=== PATIENT | male | born 1950 | race Caucasian/White ===

== ENCOUNTER 2017-03-26 14:31 | Observation (INO) | payer MEDICARE, BC ==
[~2017-03-26] VITALS: Ht 182.9 cm; Wt 103.2 kg
[2017-03-26] VITALS (8 sets, daily range): BP systolic 122–164; BP diastolic 72–104; PULSE 82–96; RESP 16–18; TEMP 96.9–98.1; O2SAT 95–97
--- NOTE | 2017-03-26 14:46 | PD ---
HPI Chief Complaint: Chest Pain Time Seen by Provider: 14:41 Travel History International Travel<30 days: No Contact w/Intl Traveler<30days: No Traveled to known affect area: No History of Present Illness HPI This 66-year-old male is complaining of episodes of tightness in his chest. He' s been having these for several months. He says he gets anywhere between 2 and 6 of them daily. He has not been able to determine what triggers it. It does not appear related to eating or to exertion. It is characterized by pressure in the substernal area that lasts 5-10 minutes. There is no radiation. He is no associated shortness of breath. Occasionally gets a lump in his throat. He gets palpitations at night does not usually get the pain at night. He saw a microwave remote sensing scientist 2 or 3 years ago because he was having palpitations. At that time he was found to have atrial fibrillation. He is on aspirin daily. He is not on any medication for rate control. He does not smoke. There is no family history of heart disease. He has no history of hypertension or diabetes PFSH Past Medical History Hx Anticoagulant Therapy: Yes (ASA) Cardiovascular Problems: Yes Social History Tobacco Use: No Allergies-Medications (Allergen,Severity, Reaction): Coded Allergies: No Known Allergies (Unverified , 03/26/17) Reported Meds & Prescriptions Reported Meds & Active Scripts Active Reported Aspirin 325 Mg Tab 325 Mg PO DAILY Review of Systems General / Constitutional: No: Fever, Chills Eyes: No: Diploplia, Blurred Vision HENT: No: Headaches, Vertigo Cardiovascular: Positive: Chest Pain or Discomfort, Palpitations Respiratory: No: Cough, Shortness of Breath Gastrointestinal: No: Nausea, Vomiting Genitourinary: No: Urgency, Frequency Musculoskeletal: No: Myalgias Skin: No Rash Neurologic: No: Weakness, Dizziness Hematologic/Lymphatic: No: Easy Bruising Physical Exam Narrative GENERAL: Well-developed male SKIN: Focused skin assessment warm/dry. HEAD: Atraumatic. Normocephalic. EYES: Pupils equal and round. No scleral icterus. No injection or drainage. ENT: No nasal bleeding or discharge. Mucous membranes pink and moist. NECK: Trachea midline. No JVD. CARDIOVASCULAR: irregular rate and rhythm. No murmur appreciated. RESPIRATORY: No accessory muscle use. Clear to auscultation. Breath sounds equal bilaterally. GASTROINTESTINAL: Abdomen soft, non-tender, nondistended. Hepatic and splenic margins not palpable. MUSCULOSKELETAL: No obvious deformities. No clubbing. No cyanosis. No edema. NEUROLOGICAL: Awake and alert. No obvious cranial nerve deficits. Motor grossly within normal limits. Normal speech. PSYCHIATRIC: Appropriate mood and affect; insight and judgment normal. Data Data Last Documented VS Vital Signs Date Time Temp Pulse Resp B/P (MAP) Pulse Ox O2 Delivery O2 Flow Rate FiO2 03/26/17 15:10 83 16 138/83 (101) 97 Room Air 03/26/17 14:35 98.1 Orders Orders Complete Blood Count With Diff (03/26/17 14:41) Basic Metabolic Panel (Bmp) (03/26/17 14:41) Troponin I (03/26/17 14:41) Urinalysis - C+S If Indicated (03/26/17 14:41) Chest, Single Ap (03/26/17 14:41) Electrocardiogram (03/26/17 14:36) Labs Laboratory Tests Test 03/26/17 14:56 03/26/17 15:28 White Blood Count 8.6 TH/MM3 Red Blood Count 4.85 MIL/MM3 Hemoglobin 15.0 GM/DL Hematocrit 45.2 % Mean Corpuscular Volume 93.0 FL Mean Corpuscular Hemoglobin 30.9 PG Mean Corpuscular Hemoglobin Concent 33.2 % Red Cell Distribution Width 12.7 % Platelet Count 281 TH/MM3 Mean Platelet Volume 7.2 FL Neutrophils (%) (Auto) 57.9 % Lymphocytes (%) (Auto) 33.3 % Monocytes (%) (Auto) 6.6 % Eosinophils (%) (Auto) 1.7 % Basophils (%) (Auto) 0.5 % Neutrophils # (Auto) 5.0 TH/MM3 Lymphocytes # (Auto) 2.9 TH/MM3 Monocytes # (Auto) 0.6 TH/MM3 Eosinophils # (Auto) 0.1 TH/MM3 Basophils # (Auto) 0.0 TH/MM3 CBC Comment DIFF FINAL Differential Comment Blood Urea Nitrogen 16 MG/DL Creatinine 1.50 MG/DL Random Glucose 102 MG/DL Calcium Level 8.7 MG/DL Sodium Level 139 MEQ/L Potassium Level 4.4 MEQ/L Chloride Level 103 MEQ/L Carbon Dioxide Level 28.5 MEQ/L Anion Gap 8 MEQ/L Estimat Glomerular Filtration Rate 47 ML/MIN Troponin I LESS THAN 0.02 NG/ML MDM Medical Decision Making Medical Screen Exam Complete: Yes Emergency Medical Condition: Yes Medical Record Reviewed: Yes Differential Diagnosis Differential includes angina, coronary artery disease, GERD, atypical chest pain Narrative Course EKG shows atrial fibrillation with a controlled rate. There are no acute ST-T wave changes. Chest x-ray is negative. Troponin is less than 0.2. Patient will be admitted to the chest pain center Diagnosis Primary Impression: Chest pain Qualified Codes: R07.9 - Chest pain, unspecified Admitting Information Admitting Physician Requests: Observation Duke Yung MD Mar 26, 2017 14:46
[2017-03-26] MEDS ORDERED: ASPI325T PO (15:07)
--- NOTE | 2017-03-26 15:12 | RADRPT ---
EXAM DATE/TIME: 03/26/2017 14:53 [facility] COMPARISON: No previous studies available for comparison. INDICATIONS : Chest pain today MEDICAL HISTORY : None. SURGICAL HISTORY : spinal neck surgery ENCOUNTER: Initial ACUITY: 1 day PAIN SCORE: 2/10 LOCATION: Bilateral chest FINDINGS: A single view of the chest demonstrates the lungs to be symmetrically aerated without evidence of mas s, infiltrate or effusion. The cardiomediastinal contours are unremarkable. Osseous structures are intact. CONCLUSION: No acute disease. Fly Ball MD on March 26, 2017 at 15:10 Board Certified Radiologist. This report was verified electronically.
[2017-03-26 15:14] LABS: BASOPHIL % 0.5 % (0.0-2.0); EOSINOPHIL # 0.1 TH/MM3 (0-0.4); EOSINOPHIL % 1.7 % (0.0-4.0); HEMATOCRIT 45.2 % (39.0-51.0); LYMPH % 33.3 % (9.0-44.0); LYMPHOCYTE # 2.9 TH/MM3 (1.0-4.8); MEAN CORPUSCULAR HEMOGLOBIN 30.9 PG (27.0-34.0); MEAN CORPUSCULAR HGB CONC 33.2 % (32.0-36.0); MEAN PLATELET VOLUME 7.2 FL (7.0-11.0); MONO % 6.6 % (0.0-8.0); MONOCYTE # 0.6 TH/MM3 (0-0.9); NEUT % 57.9 % (16.0-70.0); PLATELET COUNT 281 TH/MM3 (150-450); RED BLOOD COUNT 4.85 MIL/MM3 (4.50-5.90); RED CELL DISTRIBUTION WIDTH 12.7 % (11.6-17.2); WHITE BLOOD COUNT 8.6 TH/MM3 (4.0-11.0)
[2017-03-26 15:18] LABS: CHLORIDE 103 MEQ/L (98-107); SODIUM (NA) 139 MEQ/L (136-145)
[2017-03-26 15:20] LABS: CALCIUM 8.7 MG/DL (8.5-10.1)
[2017-03-26 15:21] LABS: BICARBONATE 28.5 MEQ/L (21.0-32.0); BLOOD UREA NITROGEN 16 MG/DL (7-18); GLUCOSE,RANDOM 102 MG/DL (74-106)
[2017-03-26 15:24] LABS: GLOMERULAR FILTRATION RATE 47 ML/MIN (>89)
[2017-03-26 15:29] LABS: TROPONIN I LESS THAN 0.02 NG/ML (0.02-0.05)
[2017-03-26 15:36] LABS: BILIRUBIN, URINE NEG (NEG); BLOOD, URINE NEG (NEG); GLUCOSE,URINE NEG (NEG); KETONE, URINE NEG (NEG); NITRITE,URINE NEG (NEG); URINE LEUKOCYTE ESTERASE NEG (NEG)
[2017-03-26 15:52] LABS: SQUAMOUS EPITHELIAL CELL URINE 0-5 /hpf (0-5); URINE COLOR YELLOW (YELLW/STRAW); WBC, URINE 0-2 /hpf (0-5)
[2017-03-26] MEDS ORDERED: TEMAZEPAM 15 MG CAP PO PRN (17:00)
[2017-03-26] MEDS ORDERED: ACETAMINOPHEN/HYDROcodone 325 MG/7.5 MG TAB PO PRN (17:00)
[2017-03-26] MEDS ORDERED: ONDANSETRON HCL 4 MG/2 ML VIAL IV PUSH PRN (17:00)
[2017-03-26] MEDS ORDERED: SODIUM CHLORIDE 0.9% FLUSH 10 ML FLUSH IV FLUSH PRN (17:00)
[2017-03-26] MEDS ORDERED: ACETAMINOPHEN 500 MG CPLT PO PRN (17:00)
[2017-03-26] MEDS ORDERED: MORPHINE SULFATE 4 MG/ML INJ IV PUSH PRN (17:00)
[2017-03-26] MEDS ORDERED: NITROGLYCERIN 0.4 MG SL 25 TABS/BTL SL PRN (17:00)
--- NOTE | 2017-03-26 17:53 | HHI.HP ---
[facility] No Primary Care Physician Admission Diagnosis CHEST PAIN Diagnoses: Chief Complaint: chest pain Travel History International Travel<30 Days: No Contact w/Intl Traveler <30 Da: No Traveled to Known Affected Are: No History of Present Illness 66-year-old white male being admitted for chest pain. States that he's had faint intermittent chest pains for a year but that over the last 4 weeks the pain has become more frequent and particularly today the became became more intense to a level of a "2." Pain will occasionally radiate from the midsternum to the suprasternal area. Says he was either sitting or standing when the pain occurred today. Has been intermittently coming and going since onset today. Has been unable to identify any exacerbating or alleviating factors .Denies any shortness of breath, nausea vomiting or lightheadedness or any palpitations. Says he had a stress treadmill test about a year ago and that was negative. Says he takes aspirin 325 mg only about twice a week. Review of Systems Except as stated in HPI: all other systems reviewed are Neg Past Family Social History Past Medical History afib Past Surgical History c4-c5 disc repair Allergies: Coded Allergies: No Known Allergies (Unverified , 03/26/17) Family History no premature CVA or CAD in family Social History no cig, illicit drug use, reports light occasional ETOH use Physical Exam Vital Signs Vital Signs Date Time Temp Pulse Resp B/P (MAP) Pulse Ox O2 Delivery O2 Flow Rate FiO2 03/26/17 17:03 97 21 03/26/17 16:57 89 16 152/90 (110) 97 03/26/17 15:10 83 16 138/83 (101) 97 Room Air 03/26/17 14:35 98.1 96 18 164/104 (124) 97 Physical Exam VS: Reviewed, afebrile GENERAL: Middle age white male, well-nourished, no acute distress SKIN: Warm and dry. EYES: No scleral icterus. No injection or drainage. Extraocular motions intact ENT: No nasal bleeding or discharge. Mucous membranes pink and moist. CARDIOVASCULAR: Regular rate and rhythm. no murmurs RESPIRATORY: No accessory muscle use. Clear to auscultation. Breath sounds equal bilaterally. GASTROINTESTINAL: Abdomen soft, non-tender, nondistended. Hepatic and splenic margins not palpable. Extremities: No clubbing, cyanosis, or edema. No obvious deformities. MUSCULOSKELETAL: Extremities without clubbing, cyanosis, or edema. No obvious deformities. grossly intact ROM with 5/5 strength in upper and lower extremities proximally. No chest wall TTP NEUROLOGICAL: Awake and alert. No obvious cranial nerve deficits. No facial droop nor slurred speech noted. PSYCHIATRIC: Appropriate mood and affect; insight and judgment normal. Laboratory Laboratory Tests Test 03/26/17 14:56 03/26/17 15:28 White Blood Count 8.6 Red Blood Count 4.85 Hemoglobin 15.0 Hematocrit 45.2 Mean Corpuscular Volume 93.0 Mean Corpuscular Hemoglobin 30.9 Mean Corpuscular Hemoglobin Concent 33.2 Red Cell Distribution Width 12.7 Platelet Count 281 Mean Platelet Volume 7.2 Neutrophils (%) (Auto) 57.9 Lymphocytes (%) (Auto) 33.3 Monocytes (%) (Auto) 6.6 Eosinophils (%) (Auto) 1.7 Basophils (%) (Auto) 0.5 Neutrophils # (Auto) 5.0 Lymphocytes # (Auto) 2.9 Monocytes # (Auto) 0.6 Eosinophils # (Auto) 0.1 Basophils # (Auto) 0.0 CBC Comment DIFF FINAL Differential Comment Blood Urea Nitrogen 16 Creatinine 1.50 Random Glucose 102 Calcium Level 8.7 Sodium Level 139 Potassium Level 4.4 Chloride Level 103 Carbon Dioxide Level 28.5 Anion Gap 8 Estimat Glomerular Filtration Rate 47 Troponin I LESS THAN 0.02 Urine Collection Type CLEAN CATCH Urine Color YELLOW Urine Turbidity CLEAR Urine pH 6.0 Urine Specific [place] 1.024 Urine Protein NEG Urine Glucose (UA) NEG Urine Ketones NEG Urine Occult Blood NEG Urine Nitrite NEG Urine Bilirubin NEG Urine Leukocyte Esterase NEG Urine WBC 0-2 Urine Squamous Epithelial Cells 0-5 Microscopic Urinalysis Comment CULT NOT INDICATED Result Diagram: 03/26/17 1456 03/26/17 1456 Imaging Last Impressions Chest X-Ray 03/26/17 1441 Signed Impressions: Service Date/Time: Sunday, March 26, 2017 14:53 - CONCLUSION: No acute disease. MD Lani Zabala VTE Risk Assessment Caprini VTE Risk Assessment: Mod/High Risk (score >= 2) Caprini Risk Assessment Model Point Value = 1 Point Value = 2 Point Value = 3 Point Value = 5 Age 41-60 Minor surgery BMI > 25 kg/m2 Swollen legs Varicose veins or History of unexplained or recurrent spontaneous Oral contraceptives or hormone replacement Sepsis (< 1 month) Serious lung disease, including pneumonia (< 1 month) Abnormal pulmonary function Acute myocardial infarction Congestive heart failure (< 1 month) History of inflammatory bowel disease Medical patient at bed rest Age 61-74 Arthroscopic surgery Major open surgery (> 45 min) Laparoscopic surgery (> 45 min) Malignancy Confined to bed (> 72 hours) Immobilizing plaster cast Central venous access Age >= 75 History of VTE Family history of VTE Factor V Leiden Prothrombin [id number] Lupus anticoagulant Anticardiolipin antibodies Elevated serum homocysteine Heparin-induced thrombocytopenia Other congenital or acquired thrombophilia Stroke (< 1 month) Elective arthroplasty Hip, pelvis, or leg fracture Acute spinal cord injury (< 1 month) Prophylaxis Regimen Total Risk Factor Score Risk Level Prophylaxis Regimen 0-1 Low Early ambulation 2 Moderate Order ONE of the following: *Sequential Compression Device (SCD) *Heparin 5000 units SQ BID 3-4 Higher Order ONE of the following medications: *Heparin 5000 units SQ TID *Enoxaparin/Lovenox 40 mg SQ daily (WT < 150 kg, CrCl > 30 mL/min) *Enoxaparin/Lovenox 30 mg SQ daily (WT < 150 kg, CrCl > 10-29 mL/min) *Enoxaparin/Lovenox 30 mg SQ BID (WT < 150 kg, CrCl > 30 mL/min) AND/OR *Sequential Compression Device (SCD) 5 or more Highest Order ONE of the following medications: *Heparin 5000 units SQ TID (Preferred with Epidurals) *Enoxaparin/Lovenox 40 mg SQ daily (WT < 150 kg, CrCl > 30 mL/min) *Enoxaparin/Lovenox 30 mg SQ daily (WT < 150 kg, CrCl > 10-29 mL/min) *Enoxaparin/Lovenox 30 mg SQ BID (WT < 150 kg, CrCl > 30 mL/min) AND *Sequential Compression Device (SCD) Assessment and Plan Assessment and Plan Chest pain - Trending troponins, EKG which I independently reviewed shows atrial flutter 2: 1 - Chest x-ray which I independently reviewed shows no acute infiltrates - plan to perform stress test tomorrow - We'll check LDL, continue with high-dose aspirin and Lipitor daily starting today - Nitro paste as needed Aflutter/Afib - continue aspirin w/ chadsvasc2 score of 1 DVT - SCDs All orders entered by Dimitri York were at my discretion. Spenser Schneider MD Mar 26, 2017 17:53
[2017-03-26 18:49] LABS: TROPONIN I LESS THAN 0.02 NG/ML (0.02-0.05)
[2017-03-26] MEDS: SODIUM CHLORIDE 0.9% FLUSH 10 ML FLUSH IV FLUSH SCH (20:38)
[2017-03-26 21:50] LABS: TROPONIN I LESS THAN 0.02 NG/ML (0.02-0.05)
[2017-03-27] VITALS: BP 131/78; PULSE 83; RESP 18; TEMP 97; O2SAT 98
[2017-03-27 04:00] VITALS: BP 135/86; PULSE 75; RESP 20; TEMP 96.8; O2SAT 98
[2017-03-27 07:01] VITALS: PULSE 76
[2017-03-27 08:00] VITALS: BP 123/78; PULSE 79; RESP 18; TEMP 97.2; O2SAT 98
[2017-03-27] MEDS: SODIUM CHLORIDE 0.9% FLUSH 10 ML FLUSH IV FLUSH SCH (08:35)
[2017-03-27] MEDS ORDERED: ASPIRIN 325 MG TAB PO SCH (09:00)
[2017-03-27 09:36] LABS: CHOLESTEROL/ HDL RATIO 3.99 RATIO; HDL CHOLESTEROL 38.8 MG/DL (40.0-60.0)
[2017-03-27] MEDS ORDERED: REGADENOSON INJ 0.4 MG/5 ML SYR IV ONE (10:07)
--- NOTE | 2017-03-27 11:48 | RADRPT ---
EXAM DATE/TIME: 03/27/2017 10:05 [facility] COMPARISON: No previous studies available for comparison. INDICATIONS : Substernal chest pain. Angina. Atrial fibrillation. DOSE: 30 mCi Tc99m Myoview at stress. 11 mCi Tc99m Myoview at rest. 0.4 mg Lexiscan STRESS SYMPTOMS: Dyspnea and facial flush. EJECTION FRACTION: 64% MEDICAL HISTORY : Atrial fibrillation. SURGICAL HISTORY : Cervical repair. ENCOUNTER: Initial ACUITY: 1 day PAIN SCALE: 5/10 LOCATION: Substernal chest TECHNIQUE: The patient underwent pharmacologic stress with infusion of prescribed dose. Continuous ECG tracing was monitored during stress. Gated SPECT imaging was performed after stress and conventional SPECT i maging was performed at rest. The examination was performed on a SPECT/CT scanner, both attenuation and non-corrected datasets were reviewed. FINDINGS: DISTRIBUTION: The maximum perfused segment at stress is in the anterolateral wall. PERFUSION STUDY: The pattern of perfusion at stress is within normal limits. GATED STUDY: There is intact wall motion and thickening without hypokinetic or dyskinetic segments. CONCLUSION: 1. Unremarkable myocardial perfusion scan. RISK CATEGORY: Low (<1% Annual Mortality Rate) Jessee Feliz MD on March 27, 2017 at 11:45 Board Certified Radiologist. This report was verified electronically.
[2017-03-27 12:00] VITALS: BP 136/72; PULSE 84; RESP 18; TEMP 97.1; O2SAT 97
--- NOTE | 2017-03-27 12:15 | EKG ---
Date Performed: 03/26/2017 Time Performed: 14:36:05 PTAGE: 66 years EKG: ATRIAL FIBRILLATION NONSPECIFIC T-WAVE ABNORMALITY ABNORMAL RHYTHM ECG INTERPRETATION BASED ON A DEFAULT AGE OF 40 YEARS NO PREVIOUS TRACING DOCTOR: Jessee Pineda Interpretating Date/Time 03/27/2017 12:12:52
[2017-03-27] MEDS ORDERED: ASPI81TA11 PO (12:32)
[2017-03-27] MEDS ORDERED: LIPI40TA PO (12:32)
[2017-03-27] MEDS ORDERED: OMEP20TA PO (12:33)
--- NOTE | 2017-03-27 12:33 | HHI.DCPOC ---
Discharge Care Plan Diagnosis: (1) GERD (gastroesophageal reflux disease) Goals to Promote Your Health * To prevent worsening of your condition and complications * To maintain your health at the optimal level Directions to Meet Your Goals Take your medications as prescribed Follow your dietary instruction Follow activity as directed Keep your appointments as scheduled Take your immunizations and boosters as scheduled If your symptoms worsen call your PCP, if no PCP go to Urgent Care Center or Emergency Room Smoking is Dangerous to Your Health. Avoid second hand smoke Call the 24-hour hour crisis hotline for domestic abuse at Spenser Schneider MD Mar 27, 2017 12:33
--- NOTE | 2017-03-27 12:33 | HHI.DCPOC ---
Discharge Care Plan Diagnosis: (1) GERD (gastroesophageal reflux disease) Goals to Promote Your Health * To prevent worsening of your condition and complications * To maintain your health at the optimal level Directions to Meet Your Goals Take your medications as prescribed Follow your dietary instruction Follow activity as directed Keep your appointments as scheduled Take your immunizations and boosters as scheduled If your symptoms worsen call your PCP, if no PCP go to Urgent Care Center or Emergency Room Smoking is Dangerous to Your Health. Avoid second hand smoke Call the 24-hour hour crisis hotline for domestic abuse at Spenser Schneider MD Mar 27, 2017 12:33
--- NOTE | 2017-03-27 12:33 | HHI.DCPOC ---
Discharge Care Plan Diagnosis: (1) GERD (gastroesophageal reflux disease) Goals to Promote Your Health * To prevent worsening of your condition and complications * To maintain your health at the optimal level Directions to Meet Your Goals Take your medications as prescribed Follow your dietary instruction Follow activity as directed Keep your appointments as scheduled Take your immunizations and boosters as scheduled If your symptoms worsen call your PCP, if no PCP go to Urgent Care Center or Emergency Room Smoking is Dangerous to Your Health. Avoid second hand smoke Call the 24-hour hour crisis hotline for domestic abuse at Spenser Schneider MD Mar 27, 2017 12:33
--- NOTE | 2017-03-27 13:29 | EKG ---
Date Performed: 03/26/2017 Time Performed: 21:13:46 PTAGE: 66 years EKG: ATRIAL FIBRILLATION NONSPECIFIC T-WAVE ABNORMALITY ABNORMAL RHYTHM ECG PREVIOUS TRACING : 03/26/2017 18.18 Compared to prior tracing no significant change DOCTOR: Jessee Pineda Interpretating Date/Time 03/27/2017 13:26:13
--- NOTE | 2017-03-27 13:29 | EKG ---
Date Performed: 03/26/2017 Time Performed: 18:18:36 PTAGE: 66 years EKG: ATRIAL FIBRILLATION ABNORMAL RHYTHM ECG PREVIOUS TRACING : 03/26/2017 14.36 Compared to prior tracing no significant change DOCTOR: Jessee Pineda Interpretating Date/Time 03/27/2017 13:26:22
--- NOTE | 2017-03-27 13:29 | HHI.PR ---
Subjective Remarks pt reports no significant chest pain today. Objective Vital Signs Date Time Temp Pulse Resp B/P (MAP) Pulse Ox O2 Delivery O2 Flow Rate FiO2 03/27/17 08:00 97.2 79 18 123/78 (93) 98 03/27/17 07:01 76 03/27/17 04:00 96.8 75 20 135/86 (102) 98 03/27/17 00:00 97.0 83 18 131/78 (95) 98 03/26/17 20:07 97 21 03/26/17 20:00 97.6 82 18 122/72 (89) 97 03/26/17 18:40 96.9 82 16 149/90 (109) 95 03/26/17 17:15 92 03/26/17 17:03 97 21 03/26/17 16:57 89 16 152/90 (110) 97 03/26/17 15:10 83 16 138/83 (101) 97 Room Air 03/26/17 14:35 98.1 96 18 164/104 (124) 97 I/O 03/26/17 03/26/17 03/26/17 03/27/17 03/27/17 03/27/17 07:00 15:00 23:00 07:00 15:00 23:00 Intake Total 480 ml Balance 480 ml Intake Oral 480 ml # Voids 2 1 # Bowel Movements 0 0 Result Diagram: 03/26/17 1456 03/26/17 1456 Objective Remarks unlabored breathing CV: rrr, no murmurs A/P Assessment and Plan Lexiscan is negative. Pt is clinically stable. Discharging patient home today, recommended taking baby aspirin every day as well as proton pump inhibitor. Spenser Schneider MD Mar 27, 2017 13:29
--- NOTE | 2017-03-27 15:36 | TR ---
Date Performed: 03/27/2017 Time Performed: 10:26:30 DOCTOR: Jessee Pineda DRUG LIST: CLINICAL HISTORY: CHEST PAIN REASON FOR TEST: Chest pain REASON FOR ENDING: OBSERVATION: CONCLUSION: Lexiscan stress test was performed under standard four minute protocol. Radionuclid e was injected one minute prior to ending the test. No electrocardiographic abormalities were present to suggest ischemia. Nuclear imaging and interpretation are pending. COMMENTS:
== END 2017-03-27 14:30 | disposition home or self-care (01) ==
LOC: PHED 14:31 → PHEDA 15:54 → PH3B 16:50
PROVIDERS: ADMIT Hospitalist; ATTEND Hospitalist
DX: R07.89 Other chest pain (principal); I48.91 Unspecified atrial fibrillation; I48.92 Unspecified atrial flutter; K21.9 Gastro-esophageal reflux disease without esophagitis; Z79.82 Long term (current) use of aspirin
CPT/HCPCS: 71010; 78452; 80048; 80061; 81001; 82550; 82552; 84484; 85025; 93005; 93017; 99285; A9502; G0378; J2785

== ENCOUNTER 2017-11-14 10:05 | Emergency (ER) | payer MEDICARE ==
[~2017-11-14] VITALS: Ht 182.9 cm; Wt 98.8 kg
[~2017-11-14 10:05] MED LIST: ASPI81TA23 PO; LIPI40TA PO; OMEP20TA93 PO
[2017-11-14 10:18] VITALS: BP 123/71; PULSE 87; RESP 18; TEMP 97.8; O2SAT 98
[2017-11-14] MEDS ORDERED: METHOCARBAMOL 500 MG TAB PO ONE (10:30)
[2017-11-14] MEDS ORDERED: IBUPROFEN 600 MG TAB PO ONE (10:30)
--- NOTE | 2017-11-14 10:35 | PD ---
HPI Chief Complaint: Injury Time Seen by Provider: 10:24 Travel History International Travel<30 days: No Contact w/Intl Traveler<30days: No Traveled to known affect area: No History of Present Illness HPI 67 year old male presents to the emergency department for evaluation of right calf pain. Patient states that this morning, just prior to arrival, he was stretching, bending down, touching his left foot, when his right leg went out, causing him to fall. He reports pain to the posterior right calf since then, Pain is 3-4/10, worse with palpation, ambulation. Patient states he is not currently on any prescribed medications. Patient denies any other symptoms or complaints. Mild severity. PFSH Past Medical History Hx Anticoagulant Therapy: Yes (asa) Atrial Fibrillation: Yes Cancer: No Cardiovascular Problems: Yes (A-FIB) Endocrine: No Genitourinary: No Immune Disorder: No Musculoskeletal: Yes (C4-C5 SURGERY) Psychiatric: No Reproductive: No Social History Alcohol Use: Yes (OCC) Tobacco Use: No Substance Use: No Allergies-Medications (Allergen,Severity, Reaction): Coded Allergies: No Known Allergies (Unverified Adverse Reaction, Unknown, 11/14/17) Reported Meds & Prescriptions Reported Meds & Active Scripts Active Aspirin EC (Aspirin) 81 Mg Tabdr 81 Mg PO DAILY Review of Systems Except as stated in HPI: all other systems reviewed are Neg Physical Exam Narrative GENERAL: Well-nourished, well-developed male patient, ambulatory. Afebrile. SKIN: Focused skin assessment warm/dry. HEAD: Normocephalic. Atraumatic. EYES: No scleral icterus. No injection or drainage. CARDIOVASCULAR: Right pedal pulse is 2+. RESPIRATORY: No accessory muscle use. GASTROINTESTINAL: Abdomen soft, non-tender, nondistended. MUSCULOSKELETAL: No cyanosis, or edema. Patient has tenderness to palpation over mid posterior calf. No evidence of muscle detachment. Negative walters' s test. Data Data Last Documented VS Vital Signs Date Time Temp Pulse Resp B/P (MAP) Pulse Ox O2 Delivery O2 Flow Rate FiO2 11/14/17 10:27 16 11/14/17 10:18 97.8 87 123/71 (88) 98 Orders Orders Ibuprofen (Motrin) (11/14/17 10:30) Methocarbamol (Robaxin) (11/14/17 10:30) Tibia/Fibula (Ap/Lat) (11/14/17 ) MDM Medical Decision Making Medical Screen Exam Complete: Yes Emergency Medical Condition: Yes Medical Record Reviewed: Yes Interpretation(s) Last Impressions Tibia/Fibula X-Ray 11/14/17 0000 Signed Impressions: CONCLUSION: Unremarkable exam for patient's age. Differential Diagnosis muscle strain vs. muscle spasm vs. fracture vs. contusion Narrative Course 67 year old male presents to the emergency department for evaluation of right leg pain after stretching and falling playing tennis. He appears well on exam. X-ray of the right tibia/fibula is ordered and pending. Patient is given Ibuprofen 600 mg PO and Robaxin 500 mg PO for pain. X-ray of the right tibia/fibula is unremarkable Physical and imaging is reassuring for muscle strain. Patient instructed to ice , ibuprofen for pain. He declines crutches at this time. The patient was discharged in stable condition with instructions, including return instructions and follow up instructions. Diagnosis Primary Impression: Muscle strain Referrals: Primary Care Physician call for appointment Patient Instructions: General Instructions, Muscle Strain (ED) Additional Instructions: [id number] ibuprofen every 6-8 hours as needed for pain. Ice for 20 minutes 4-5 times daily. Follow-up with a primary care physician. Return to the emergency department for any acute worsening of symptoms. Med/Other Pt SpecificInfo: No Change to Meds Disposition: 01 DISCHARGE HOME Condition: Stable Sugey Mclean KATERIN Nov 14, 2017 10:35
--- NOTE | 2017-11-14 10:47 | RADRPT ---
EXAM DATE: 11/14/2017 10:44 AM EDT AGE/SEX: 67 years / Male INDICATIONS: Right posterior tibia/fibula pain after playing tennis. CLINICAL DATA: This is the patient's initial encounter. Patient reports that signs and symptoms have been present for 1 day and indicates a pain score of 4/10. MEDICAL/SURGICAL HISTORY: None. None. COMPARISON: No prior exams available for comparison. FINDINGS: Bony structures are intact and in normal alignment. Osseous density is normal. Soft tissues are unre markable. No radiopaque foreign bodies seen. There are some vascular calcifications in the soft tissues characteristic of PVD. CONCLUSION: Unremarkable exam for patient's age. Electronically signed by: Oh Fraire MD 11/14/2017 10:46 AM EDT
== END 2017-11-14 11:18 | disposition home or self-care (01) ==
LOC: PHEFT 10:05
DX: S86.911A Strain of unspecified muscle(s) and tendon(s) at lower leg level, right leg, initial encounter (principal); I48.91 Unspecified atrial fibrillation; W18.30XA Fall on same level, unspecified, initial encounter; Y93.89 Activity, other specified; Z79.82 Long term (current) use of aspirin
CPT/HCPCS: 73590; 99283